=== PATIENT | male | born 1985 | race Caucasian/White ===

== ENCOUNTER 2019-03-20 18:43 | Emergency (ER) | payer SELFPAY ==
--- NOTE | 2019-03-20 19:05 | PDOC ---
Rapid Medical Evaluation Chief Complaint: Abscess Boil Time Seen by Provider: 03/20/19 19:03 Medical Evaluation: Allergies Allergy/AdvReac Type Severity Reaction Status Date / Time No Known Allergies Allergy Verified 03/20/19 19:03 03/20/19 19:04 This patient had rapid medical evaluation in triage cc:cyst HPI: Patient reports cyst to tailbone x 1 months used vicks and warm water with no relief. States it was draining a little. Denies fever or chills' PE: NAD unlabored breathing unable to sit in triage Orders: none This patient will proceed to ed for further evaluation. Discharge Disposition - Diagnosis Abscess - Referrals - Patient Instructions - Post Discharge Activity
[2019-03-20 19:09] VITALS: BP 132/60; PULSE 99; TEMP 98.5; BMI 31.4
--- NOTE | 2019-03-20 19:58 | PDOC ---
History of Present Illness - General Chief Complaint: Abscess Boil Stated Complaint: CYST ON BACK Time Seen by Provider: 03/20/19 19:03 - History of Present Illness Initial Comments: 03/20/19 19:56 34-year-old male presents for evaluation of a painful area on his buttocks x1 month Past History - Past Medical History Allergies/Adverse Reactions: Allergies Allergy/AdvReac Type Severity Reaction Status Date / Time No Known Allergies Allergy Verified 03/20/19 19:03 Home Medications: Ambulatory Orders Cephalexin [Keflex] 500 mg PO QID #40 capsule 03/20/19 Sulfamethoxazole/Trimethoprim [Bactrim Ds -] 1 tab PO BID #14 tablet 03/20/19 - Psycho Social/Smoking Cessation Hx Smoking History: Never smoked Information on smoking cessation initiated: No Hx Alcohol Use: No Drug/Substance Use Hx: No Review of Systems - Review of Systems Integumentary: Yes: Lesions *Physical Exam - Vital Signs Last Vital Signs Temp Pulse Resp BP Pulse Ox 98.5 F 99 H 16 132/60 100 03/20/19 19:03 03/20/19 19:03 03/20/19 19:03 03/20/19 19:03 03/20/19 19:03 - Physical Exam 03/20/19 19:57 There is an erythemic firm indurated area with multiple areas of drainage on the superior aspect midline of the buttocks the area is firm without fluctuance Medical Decision Making - Medical Decision Making 03/20/19 19:57 This pilonidal cyst is not ready to be drained it is infected Bactrim and Keflex follow-up with general surgery encouraged warm compresses Discharge - Discharge Information Problems reviewed: Yes Clinical Impression/Diagnosis: Abscess Condition: Stable Disposition: HOME - Admission No - Follow up/Referral Referrals: Yobani Lin MD [Staff Physician] - - Patient Discharge Instructions Additional Instructions: Please take the antibiotics as directed. Warm compresses 5-6 times a day as directed. Tylenol Motrin for pain and discomfort. Return to the emergency room for worsening symptoms and without fail follow-up with general surgery in 2 to 3 days for further evaluation and treatment options. - Post Discharge Activity
== END 2019-03-20 20:05 | disposition home or self-care (01) ==
LOC: JER 18:43 → JERFT 18:43
DX: L05.01 Pilonidal cyst with abscess (principal)
CPT/HCPCS: 99283-25